=== PATIENT | male | born 1955 | race Caucasian/White ===

== ENCOUNTER 2019-10-18 09:33 | Emergency (ER) | payer MEDICARE, OTHER ==
[2019-10-18 09:41] VITALS: BP 129/79
[2019-10-18] MEDS ORDERED: TETRACAINE HCL 0.5% OPH SOLN 4 ML OD ONE (10:07)
--- NOTE | 2019-10-18 10:11 | ER Document Report ---
ED Medical Screen (RME) - General Chief Complaint: Eye Pain Stated Complaint: EYE PAIN Time Seen by Provider: 10/18/19 10:05 Notes: Patient is a 64-year-old male who presents emergency department to the emergency department with a chief complaint of a piece of steel in his right eye. Patient works with steel and about a week ago he felt a piece of steel going to his eye. Denies any visual loss. Exam: Small fragment noted to cornea around the 11 o'clock position of the pupil. I have greeted and performed a rapid initial assessment of this patient. A comprehensive ED assessment and evaluation of the patient, analysis of test results and completion of medical decision making process will be conducted by an additional ED providers. - Related Data Allergies/Adverse Reactions: No Known Allergies Allergy (Unverified 10/18/19 09:57) Past Medical History - Social History Chew tobacco use (# tins/day): No Frequency of alcohol use: None Drug Abuse: None Physical Exam - Vital signs Vitals: Temp Pulse Resp BP Pulse Ox 98.9 F 64 16 129/79 H 98 10/18/19 09:40 10/18/19 09:40 10/18/19 09:40 10/18/19 09:40 10/18/19 09:40 - HEENT Visual acuity- Right eye: 20/50 Visual acuity- Left eye: 20/50 Visual acuity- Both eyes: 20/40 Corrective lenses worn: No Course - Vital Signs Vital signs: Temp Pulse Resp BP Pulse Ox 98.9 F 64 16 129/79 H 98 10/18/19 09:40 10/18/19 09:40 10/18/19 09:40 10/18/19 09:40 10/18/19 09:40
--- NOTE | 2019-10-18 12:58 | ER Document Report ---
ED General - General Chief Complaint: Eye Pain Stated Complaint: EYE PAIN Time Seen by Provider: 10/18/19 10:05 - HPI Notes: Chief complaint: Foreign body right eye History present illness: 64-year-old male with no known allergies taking no regular medications presents for evaluation of metallic foreign body right eye. 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 He believes that he got a small metallic fragment in the right eye about 3 days ago. He is tried to remove this with a Q-tip unsuccessfully and the eye has gotten little more irritated. He wears corrective lenses. He reports no deterioration in his vision. He has had no fever. No drainage from the eye. Minimal discomfort at this time but he says it is "worrisome" because the persistent foreign body sensation. - Related Data Allergies/Adverse Reactions: No Known Allergies Allergy (Unverified 10/18/19 09:57) Past Medical History - General Information source: Patient - Social History Smoking Status: Never Smoker Chew tobacco use (# tins/day): No Frequency of alcohol use: None Drug Abuse: None Family History: Reviewed & Not Pertinent Review of Systems - Review of Systems Notes: Otherwise negative 10 point ROS negative except as marked above and in HPI. Physical Exam - Vital signs Vitals: Temp Pulse Resp BP Pulse Ox 98.9 F 64 16 129/79 H 98 10/18/19 09:40 10/18/19 09:40 10/18/19 09:40 10/18/19 09:40 10/18/19 09:40 - Notes Notes: GENERAL: Somewhat obese male approximately stated age appearing in no acute distress. SKIN: Good turgor no rashes. HEAD: Normocephalic atraumatic. EYES: PERRLA. EOMI. mild conjunctival injection of right eye. No discharge. There is a tiny metallic fragment visible in the left cornea at the 10 o'clock position. NECK: Supple. No masses or thyromegaly. No adenopathy. Carotids 2+ without bruits. No JVD. BACK: Symmetrical without tenderness. CHEST: Respirations unlabored. Breath sounds clear and symmetrical. HEART: Regular rhythm. No murmur gallop or rub. ABDOMEN: Soft nontender without masses, organomegaly or rebound. Bowel sounds normally active. No bruits. EXTREMITIES: No edema. No calf tenderness. Cap refill less than 1.5 seconds. Dorsalis pedis and posterior tibial pulses 3+ and symmetrical. NEUROLOGICAL: Alert and oriented x3. Nonfocal. PSYCHIATRIC: Appropriate affect. - HEENT Visual acuity- Right eye: 20/50 Visual acuity- Left eye: 20/50 Visual acuity- Both eyes: 20/40 Corrective lenses worn: No Course - Re-evaluation Re-evalutation: 10/18/19 12:57 I was anesthetized topically and foreign body was removed with a moistened Q- tip. I do not see an obvious rust ring. The patient does have a small associated corneal abrasion. There is no streaming of fluorescein noted. I recommended ophthalmology follow-up to assure healing and no residual rust ring that needs further attention. - Vital Signs Vital signs: Temp Pulse Resp BP Pulse Ox 98.9 F 64 16 129/79 H 98 10/18/19 09:40 10/18/19 09:40 10/18/19 09:40 10/18/19 09:40 10/18/19 09:40 Procedures - Eye Procedure Right Time completed: 12:55 Eye Irrigated w/ Saline (ccs): 30 Foreign body removal: Right Alcaine Drops Administered: Yes Fluorescein applied: Right Cyclogel 2 Drops Administered: Right eye Slit lamp used: Yes Discharge - Discharge Clinical Impression: Metallic foreign body right cornea Condition: Stable Disposition: HOME, SELF-CARE Additional Instructions: Corneal Foreign Body You had a particle on the cornea of your eye. It's been removed, but your eye may be irritated until complete healing occurs. If a metal foreign body was imbedded in the eye, rust may develop in the cornea. If all the rust can't be removed at first, it can be removed at your follow-up visit. Following removal of a corneal foreign body, the usual treatment is to place antibiotics in the eye. If the eye is severely irritated, the pupil may be dilated to ease the pain. In addition, pain medication may be necessary. A follow-up visit is usually scheduled to assure healing. Do not drive or operate machinery until you have the full use of both your eyes. Healing of the area where the particle was embedded takes one to three days. If eye pain becomes severe, or if there is purulent drainage, eye swelling, or decreasing vision, call the doctor or return at once for re-evaluation. Use prescribed medications as directed. Follow-up with referral [facility] within the next 3 days. Return here as needed for new or worsening symptoms: Pain that is worsening or unimproved Uncontrolled vomiting High fever or shaking chills Overall worsening. Prescriptions: Tramadol HCl [Ultram 50 mg Tablet] 50 mg PO Q4HP PRN #12 tab PRN Reason: Sulfacetamide Sodium [Bleph-10] 2 drop OD Q4H #5 ml Cyclopentolate HCl [Cyclogyl 1% Drops] 1 drop OP QID 3 Days #15 ml Referrals: RAJ LOGAN MD [ACTIVE STAFF] - Follow up as needed
== END 2019-10-18 13:10 | disposition home or self-care (01) ==
LOC: ER 09:33
DX: T15.01XA Foreign body in cornea, right eye, initial encounter (principal); H57.11 Ocular pain, right eye; W22.8XXA Striking against or struck by other objects, initial encounter
CPT/HCPCS: 99283; J3490

== ENCOUNTER → 2019-11-18 | Outpatient (CLI) | payer MEDICARE, OTHER ==
--- NOTE | 2019-11-18 08:56 | RADIOLOGY REPORT (SQ) ---
EXAM DESCRIPTION: CT HEAD WITHOUT IMAGES COMPLETED DATE/TIME: 11/18/2019 7:53 am REASON FOR STUDY: DIZZINESS AND GIDDINESS (R42) R07.9 CHEST PAIN, UNSPECIFIED R42 DIZZINESS AND GI DDINESS COMPARISON: None. TECHNIQUE: Axial images acquired through the brain without intravenous contrast. Images reviewed wi th bone, brain and subdural windows. Additional sagittal and coronal reconstructions were generated. Images stored on PACS. All CT scanners at this facility use dose modulation, iterative reconstruction, and/or weight based d osing when appropriate to reduce radiation dose to as low as reasonably achievable (ALARA). [facility]: Dose Right [facility]: CareDose [facility]: Dose Right [facility]: Teradose 4D [facility]: Results [employer] RADIATION DOSE: CT Rad equipment meets quality standard of care and radiation dose reduction techniq ues were employed. CTDIvol: 48.6 mGy. DLP: 880 mGy-cm. mGy. LIMITATIONS: None. FINDINGS: VENTRICLES: Normal size and contour. CEREBRUM: No masses. No hemorrhage. No midline shift. No evidence for acute infarction. Normal gra y/white matter differentiation. No areas of low density in the white matter. CEREBELLUM: No masses. No hemorrhage. No alteration of density. No evidence for acute infarction. EXTRAAXIAL SPACES: No fluid collections. No masses. ORBITS AND GLOBE: No intra- or extraconal masses. Normal contour of globe without masses. CALVARIUM: No fracture. PARANASAL SINUSES: No fluid or mucosal thickening. SOFT TISSUES: No mass or hematoma. OTHER: No other significant finding. IMPRESSION: NORMAL BRAIN CT WITHOUT CONTRAST. EVIDENCE OF ACUTE STROKE: NO. COMMENT: Quality ID # [id number]: Final reports with documentation of one or more dose reduction techniques (e.g., Automated exposure control, adjustment of the mA and/or kV according to patient size, use of iterative reconstruction technique) TECHNICAL DOCUMENTATION: JOB ID: [id number] 2010 [employer]- All Rights Reserved Reading location - IP/workstation name: [email or web address]
--- NOTE | 2019-11-18 12:20 | DRAGON STRESS TEST REPORT ---
Name: Sky Xavier : Jun Date: NOV 09 The patient underwent treadmill exercise using the Isaiah protocol, completing 7:42 minutes and completing an estimated workload of 10.1 metabolic equivalents (METS). The test was terminated due to fatigue. The heart rate was 56 beats per minute at baseline and increased to 142 beats at peak exercise, which was 91% of the maximum predicted heart rate. The rest blood pressure was 109/74 mm/Hg and increased to 191/55 mm/Hg, which is a normal response. The patient complained of no symptoms during the procedure. The resting electrocardiogram demonstrated NSR and did not show ST-segment changes consistent with ischemia. Impression -Electrically and symptomatically negative for ischemia. -Normal exercise tolerance. -No exercise-induced dysrhythmias.There are no prior studies for comparison. MTDD
== END ==
LOC: RAD 07:44
PROVIDERS: ATTEND Physician Assistant
DX: R07.9 Chest pain, unspecified (principal); R42 Dizziness and giddiness
CPT/HCPCS: 70450; 93017